=== PATIENT | male | born 1965 | race Caucasian/White ===

== ENCOUNTER 2017-09-18 07:17 | Observation (INO) | payer OTHER ==
[~2017-09-18] VITALS: Ht 182.9 cm; Wt 84.9 kg
[~2017-09-18 07:17] MED LIST: ADAL40KI PO; TADA5TAB11 PO
--- NOTE | 2017-09-18 07:55 | EMERGENCY ROOM VISIT NOTE ---
History Report prepared by Alberto: Ledy Barney Under the Supervision of: Dr. Rey Acevedo M.D. First contact with patient: 07:31 Chief Complaint: LEG PAIN,LEG INJURY Stated Complaint: SWOLLEN RT LEG FROM KNEE DOWN History of Present Illness The patient is a 51 year old male who presents to the Emergency Room with complaints of constant right leg pain and swelling beginning this morning. The patient states that his leg felt fine last night when he went to bed. He woke up this morning and noticed swelling to his right lower leg. He reports "throbbing" pain in the leg from the knee down into the foot. He rates his pain as a 5/10 in severity. Bending his leg and walking exacerbate his pain. The patient states that this has happened before in the past, but it has never been this severe. He has never been evaluated for these symptoms before. He denies any trauma or injury to the leg. He denies any twisting or increased physical activity. He has not been on his feet longer than usual recently. The patient denies any personal or family history of blood clots. He denies any recent prolonged travel, and any recent cough or cold symptoms. He does not take any blood thinners. He did not take any medications for pain [employer]. Source of History: patient Onset: this morning Position: leg (right) Symptom Intensity: 5/10 Quality: other (throbbing) Timing: constant Modifying Factors (Worsening): other (bending, walking) Associated Symptoms: No cough Note: Pt reports swelling to the right leg. Review of Systems See HPI for pertinent positives & negatives. A total of 10 systems reviewed and were otherwise negative. Past Medical & Surgical Medical Problems: (1) Dog bite of right arm (2) Need for post exposure prophylaxis for rabies (3) Ulcerative colitis Surgical Problems: (1) H/O colectomy (2) History of arthroplasty of right shoulder (3) History of carpal tunnel surgery of left wrist (4) History of colon surgery Family History Alzheimer's disease Cancer Hypertension Social History Smoking Status: Former Smoker Marital Status: Housing Status: lives with family Occupation Status: employed Current/Historical Medications Scheduled Adalimumab (Humira Pen), 1 DOSE PO [id number] Rivaroxaban (Xarelto), 0 PO DAILY Tadalafil (Cialis), 5 MG PO UD Allergies Coded Allergies: No Known Allergies (Unverified , 09/18/17) Physical Exam Vital Signs Date Time Temp Pulse Resp B/P (MAP) Pulse Ox O2 Delivery O2 Flow Rate FiO2 09/18/17 10:40 99 Room Air 09/18/17 09:41 78 124/74 99 09/18/17 07:22 36.7 88 20 119/66 96 Room Air Physical Exam GENERAL: Patient is in no acute distress. HEENT: No acute trauma, normocephalic atraumatic, mucous membranes moist, no nasal congestion, no scleral icterus. NECK: No stridor, no adenopathy, no meningismus, trachea is midline. LUNGS: Clear to auscultation bilaterally, no wheeze, no rhonchi, breath sounds equal. HEART: Without murmurs gallops or rubs, regular rate and rhythm. ABDOMEN: Soft, nontender, bowel sounds positive, no hernias, no peritonitis. EXTREMITIES: Right lower extremity is edematous from knee to foot, no erythema, no gross deformity, strong dorsalis pedis pulse present. Left leg has no edema. NEUROLOGIC: Oriented x 3, no acute motor or sensory deficits, no focal weakness. SKIN: No rash, no jaundice, no diaphoresis. Medical Decision & Procedures ER Provider Diagnostic Interpretation: Radiology results as stated below per my review and radiologist interpretation: ULTRASOUND R VENOUS DOPP LOWER EXT UNILAT CLINICAL HISTORY: Right leg pain and swelling COMPARISON STUDY: No previous studies for comparison. FINDINGS: No thrombus was visualized within the common femoral vein. There is thrombus present within the distal aspect of the superficial femoral vein, popliteal vein, and posterior tibial vein. IMPRESSION: Acute right lower extremity DVT with involvement of the distal superficial femoral vein, popliteal vein, and posterior tibial vein. Electronically signed by: Cory Chapman M.D. 09/18/2017 9:38 AM Dictated Date/Time: 09/18/2017 9:36 AM Laboratory Results 09/18/17 10:31 09/18/17 10:31 Test 09/18/17 10:31 Red Blood Count 4.54 M/uL (4.7-6.1) Mean Corpuscular Volume 93.4 fL (80-100) Mean Corpuscular Hemoglobin 32.4 pg (25-34) Mean Corpuscular Hemoglobin Concent 34.7 g/dl (32-36) RDW Standard Deviation 44.0 fL (36.4-46.3) RDW Coefficient of Variation 13.0 % (11.5-14.5) Mean Platelet Volume 9.9 fL (7.4-10.4) Prothrombin Time 10.6 SECONDS (9.0-12.0) Prothromb Time International Ratio 1.0 (0.9-1.1) Activated Partial Thromboplast Time 24.9 SECONDS (21.0-31.0) Partial Thromboplastin Ratio 1.0 Anion Gap 5.0 mmol/L (3-11) Est Creatinine Clear Calc Drug Dose 115.6 ml/min Estimated GFR () 118.1 Estimated GFR (Non- 101.9 BUN/Creatinine Ratio 13.0 (10-20) Calcium Level 8.6 mg/dl (8.5-10.1) Laboratory results reviewed by me. ED Course 0731: The patient was evaluated in room A3. A complete history and physical exam was performed. 0958: I reassessed the patient at this time. He is feeling better and resting comfortably. I discussed the results and treatment plan with the patient. I answered all pertaining questions that he had. He expressed understanding and verbalized agreement. 1006: I spoke with Cat Haider PA-C. We discussed the patient's case. The patient will be evaluated by the [facility] for further management. Medical Decision Differential diagnoses includes DVT, hematoma, muscle tear, venous insufficiency , cellulitis, compartment syndrome, neurovascular compromise. There is no leukocytosis or concerning anemia. No significant electrolyte abnormality or kidney failure. There is no coagulopathy. Ultrasound of the right lower extremity shows a fairly extensive distal right leg DVT. By exam, there was no evidence for neurovascular compromise, no evidence for cellulitis. The patient has a fairly extensive distal right leg DVT. Given the extensive nature, hospitalization was felt warranted. I did speak with the patient and disability case manager. The on-call hospitalist was consulted. A hypercoagulable workup was ordered and is pending. Medication Reconcilliation Current Medication List: was personally reviewed by me Blood Pressure Screening Patient's blood pressure: Normal blood pressure Consults Time Called: 1002 Consulting Physician: Cat Haider PA-C Returned Call: 1006 I spoke with Cat Haider PA-C. We discussed the patient's case. The patient will be evaluated by the [facility]ist Group for further management. Impression Primary Impression: Deep vein thrombosis Additional Impression: Right leg swelling Scribe Attestation The scribe's documentation has been prepared under my direction and personally reviewed by me in its entirety. I confirm that the note above accurately reflects all work, treatment, procedures, and medical decision making performed by me. Departure Information Dispostion Being Evaluated By Hospitalist Prescriptions Rivaroxaban (Xarelto) 10 Mg Tab 0 PO DAILY for 30 Days, #90 TAB 15 mg twice daily with food for 21 days, then 20 mg daily Prov: Frankie Duarte M.D. 09/18/17 Referrals Fabiana Khan M.D. (MEDICAL) (PCP) Patient Instructions My [facility] Problem Qualifiers
--- NOTE | 2017-09-18 09:39 | DIAGNOSTIC IMAGING REPORT ---
ULTRASOUND R VENOUS DOPP LOWER EXT UNILAT CLINICAL HISTORY: Right leg pain and swelling COMPARISON STUDY: No previous studies for comparison. FINDINGS: No thrombus was visualized within the common femoral vein. There is thrombus present within the distal aspect of the superficial femoral vein, popliteal vein, and posterior tibial vein. IMPRESSION: Acute right lower extremity DVT with involvement of the distal superficial femoral vein, popliteal vein, and posterior tibial vein. Electronically signed by: Cory Chapman M.D. 09/18/2017 9:38 AM Dictated Date/Time: 09/18/2017 9:36 AM
[2017-09-18 10:40] VITALS: O2SAT 99; Ht 182.9 cm; Wt 84.9 kg
[2017-09-18 10:50] LABS: HEMATOCRIT 42.4 % (42-52); HEMOGLOBIN 14.7 g/dL (14.0-18.0); MEAN CELL VOLUME 93.4 fL (80-100); MEAN CORPUSCULAR HEMOGLOBIN 32.4 pg (25-34); MEAN CORPUSCULAR HGB CONC 34.7 g/dl (32-36); MEAN PLATELET VOLUME 9.9 fL (7.4-10.4); PLATELET COUNT 189 K/uL (130-400); WHITE BLOOD COUNT 9.35 K/uL (4.8-10.8)
[2017-09-18 11:00] LABS: PTT PATIENT 24.9 SECONDS (21.0-31.0)
[2017-09-18] MEDS ORDERED: ONDANSETRON INJ 2 MG/ML 2 ML VIAL IV PRN (11:00)
[2017-09-18] MEDS ORDERED: ACETAMINOPHEN 325 MG TAB PO PRN (11:00)
[2017-09-18] MEDS ORDERED: POLYETHYLENE (MIRALAX) 17 GM PACK PO PRN (11:00)
[2017-09-18 11:14] LABS: CALCIUM 8.6 mg/dl (8.5-10.1); CREATININE 0.83 mg/dl (0.60-1.40); POTASSIUM 4.1 mmol/L (3.5-5.1)
[2017-09-18] MEDS ORDERED: IV FLUIDS COMPLETED PRN (11:30)
[2017-09-18 12:13] VITALS: O2SAT 99
[2017-09-18] MEDS ORDERED: HEPARIN 25000 UNIT/500 ML D5W ONE (12:24)
[2017-09-18] MEDS ORDERED: HEPARIN SOD 5000 UNIT/0.5 ML CARP ONE (12:25)
--- NOTE | 2017-09-18 12:31 | History and Physical ---
History & Physical Date & Time of Service: Sep 18, 2017 at 11:18 Chief Complaint: Swollen Rt Leg From Knee Down Primary Care Physician: Fabiana Khan M.D. (MEDICAL) History of Present Illness Source: patient, spouse, clinic records, hospital records Pt is 51 y/o M with PMH ulcerative colitis s/p total proctocolectomy with creation of ileoanal pouch on presented to ER with c/o R lower extremity pain and edema this morning. Reports feeling fine yesterday and woke up with R leg pain today. Pain with weight bearing and walking. Hx upper extremity venous thrombosis with PICC line after colon surgery in 2010. He finished 10 day course of Flagyl and Cipro for increased loose stools. Had negative c-diff and stool culture. Being treated by Dr Turpin for possible pouchitis. Pt reports hx intermittent red blood noted in stool and on small amount toilet paper since surgery in 2010. Reports occurs sometimes once a week. Denies any worsening. Denies epistaxis. Denies any known injury/trauma, recent immobilization, recent trips or surgeries. Denies known clotting disorder or FH clotting or bleeding disorders. Denies fever/chills, diaphoresis, N/V, ARANDA, dizziness, syncope, vision changes, neck pain, CP, SOB, orthopnea, palpitations, abdominal pain, paresthesias, weakness, rashes. Past Medical/Surgical History Medical Problems: (1) Dog bite of right arm Status: Resolved (2) Need for post exposure prophylaxis for rabies Status: Resolved (3) Ulcerative colitis Status: Chronic Surgical Problems: (1) H/O colectomy Status: Resolved (2) History of arthroplasty of right shoulder Status: Resolved (3) History of carpal tunnel surgery of left wrist Status: Resolved (4) History of colon surgery Permanent Comment: 2010 - Total Colostomy with proctectomy and ileostomy by Dr Sarabia [facility] Status: Resolved Family History Alzheimer's disease Cancer Hypertension Social History Smoking Status: Former Smoker (quit 1998, smoked 1ppd x 8 years) Smokeless Tobacco Use: Yes (4 cans snuff a week) Alcohol Use: 1 mixed drink daily ,5-6 days a week Drug Use: none Marital Status: Housing status: lives with family Occupational Status: employed Multi-Drug Resistant Organisms History of MDRO: No Allergies Coded Allergies: No Known Allergies (Unverified , 09/18/17) Home Medications Scheduled Adalimumab (Humira Pen), 1 DOSE PO [id number] Rivaroxaban (Xarelto), 0 PO DAILY Tadalafil (Cialis), 5 MG PO UD Review of Systems Constitutional: No fever, No chills, No sweats, No weight loss, No weakness, No fatigue Eyes: No eye pain, No redness, No diplopia ENT: No unusual epistaxis, No nasal symptoms, No sore throat Respiratory: No cough, No sputum, No wheezing, No shortness of breath, No dyspnea on exertion, No dyspnea at rest, No hemoptysis Cardiovascular: No chest pain, No orthopnea, No PND, No palpitations Musculoskeletal: + calf pain (see HPI) Genitourinary - Male: No hematuria, No dysuria, No urinary frequency, No urinary urgency Neurologic: No numbness/tingling, No vertigo Hematologic / Lymphatic: No night sweats Integumentary: No rash, No itch Physical Exam Vital Signs Date Time Temp Pulse Resp B/P (MAP) Pulse Ox O2 Delivery O2 Flow Rate FiO2 09/18/17 10:40 99 Room Air 09/18/17 09:41 78 124/74 99 09/18/17 07:22 36.7 88 20 119/66 96 Room Air General Appearance: WD/WN, no apparent distress Head: normocephalic, atraumatic Eyes: normal inspection, PERRL, EOMI ENT: hearing grossly normal, pharynx normal, + pertinent finding (mucous membranes moist) Neck: supple, trachea midline Respiratory/Chest: lungs clear, normal breath sounds, no respiratory distress, no accessory muscle use Cardiovascular: regular rate, rhythm, no murmur, normal peripheral pulses Abdomen/GI: normal bowel sounds, non tender, soft Extremities/Musculoskelatal: normal capillary refill, + pertinent finding ( Right lower leg and foot with edema and tenderness to palpation R calf. No erythema or significant warm, no open areas. left leg/foot normal appearance, non-tender. ROM intact with tenderness with flexion R knee. Distal pulses intact , sensation to light touch intact) Neurologic/Psych: alert, normal mood/affect, oriented x 3 Skin: normal color, warm/dry Diagnostics Laboratory Results Results Past 24 Hours Test 09/18/17 10:31 Range/Units White Blood Count 9.35 4.8-10.8 K/uL Red Blood Count 4.54 4.7-6.1 M/uL Hemoglobin 14.7 14.0-18.0 g/dL Hematocrit 42.4 42-52 % Mean Corpuscular Volume 93.4 80-100 fL Mean Corpuscular Hemoglobin 32.4 25-34 pg Mean Corpuscular Hemoglobin Concent 34.7 32-36 g/dl RDW Standard Deviation 44.0 36.4-46.3 fL RDW Coefficient of Variation 13.0 11.5-14.5 % Platelet Count 189 130-400 K/uL Mean Platelet Volume 9.9 7.4-10.4 fL Prothrombin Time 10.6 9.0-12.0 SECONDS Prothromb Time International Ratio 1.0 0.9-1.1 Activated Partial Thromboplast Time 24.9 21.0-31.0 SECONDS Partial Thromboplastin Ratio 1.0 Sodium Level 137 136-145 mmol/L Potassium Level 4.1 3.5-5.1 mmol/L Chloride Level 103 98-107 mmol/L Carbon Dioxide Level 29 21-32 mmol/L Anion Gap 5.0 3-11 mmol/L Blood Urea Nitrogen 11 7-18 mg/dl Creatinine 0.83 0.60-1.40 mg/dl Est Creatinine Clear Calc Drug Dose 115.6 ml/min Estimated GFR () 118.1 Estimated GFR (Non- 101.9 BUN/Creatinine Ratio 13.0 10-20 Random Glucose 80 70-99 mg/dl Calcium Level 8.6 8.5-10.1 mg/dl Diagnostic Radiology U/S extremity: IMPRESSION: Acute right lower extremity DVT with involvement of the distal superficial femoral vein, popliteal vein, and posterior tibial vein. Impression Assessment and Plan DVT RLE Pt with onset of R lower leg pain and edema, noticed today. No known trauma/ immobilization. Hx upper extremity dvt with picc line in past, no other DVT hx. No CP or SOB. Vitals stable and O2 sat 99% on RA. U/S Ext: IMPRESSION: Acute right lower extremity DVT with involvement of the distal superficial femoral vein, popliteal vein, and posterior tibial vein. -pending hypercoaguopathy labs -admit med/surg obs -start heparin -monitor labs -appreciate case management assistance in determining if novel anticoagulants covered by pt's insurance, as pt interested in that option over Coumadin HX ULCERATIVE COLITIS S/P TOTAL PROCTOCOLECTOMY Hx intermittent blood noted to toilet paper and stools. Hx chronic loose stools , had increased loose stools 3 weeks ago with negative c-diff and stool cultures. Treated with cipro and flagyl with return to normal amount loose stools daily. On Humira Q 2weeks. Last dose 09/16/17 DVT Prophylaxis -Pt with current acute DVT prior to admission - heparin IV with plan to transition to oral anticoagulant Disposition admit obs med/surg Full Code Follows with Dr Khan for routine care Pt was seen with Dr Duarte. See addendum Dr. Duarte: I have seen and examined the patient with FABIO Villarreal and agree with the assessment add plan as above and would like to comment that: Patient presents with right lower extremity swelling and found to have acute right lower extremity DVT with involvement of the distal superficial femoral vein, popliteal vein, and posterior tibial vein. Patient denies symptoms of chest pain or shortness of breath. Patient has history of ulcerative colitis and reports that he does have intermittent bleeding per rectum but denies recent blood per rectum. Patient was started on heparin drip. Patient was counseled that warfarin is a possible anticoagulation that may be appropriate given readily available reversal agents in case he has bleeding per rectum in the future. Patient declined warfarin as an option. Patient was discussed alternative of Xarelto or Eliquis. Patient agrees to Xarelto. Patient was instructed that Xarelto is to be taken with this direction: 15 mg twice daily with food for 21 days followed by 20 mg once daily with food. Patient will get Lovenox 85 mg subcutaneous anticoagulant before hospital discharge which will give him time to start Xarelto the day after hospital discharge. Patient has follow up appointment with Dr. Khan on 09/23/17 at 12:45 PM at [address] [place] [address]. Patient can reschedule primary car appointment by calling [phone]. Patient is advised to return to emergency room if bleeding while on Xarelto. Level of Care Med/Surg Advanced Directives Existing Living Will: No Existing Power of Director Of Casework: No Resuscitation Status FULL RESUSCITATION VTE Prophylaxis VTE Risk Assessment Done? Y/N: Yes Risk Level: High Given or contraindicated: Other Anticoagulation Additional Copies To Fabiana Khan M.D. (MEDICAL)
[2017-09-18 12:50] VITALS: BP 129/83; PULSE 84; TEMP 36.6; O2SAT 99
[2017-09-18] MEDS ORDERED: HEPARIN 25,000 UNIT/500ML D5W 500 ML IV PRN (13:00)
[2017-09-18] MEDS ORDERED: HEPARIN IV BOLUS 6,000 UNIT in SYRINGE 0 ML IV ONE (13:15)
[2017-09-18] MEDS ORDERED: XRL10 PO (13:47)
[2017-09-18] MEDS ORDERED: ENOXAPARIN 100 MG/1ML SYR SQ ONE (14:00)
--- NOTE | 2017-09-18 14:04 | Discharge Instructions ---
Discharge Instructions Date of Service Sep 18, 2017. Admission Reason for Admission: Deep Vein Thrombosis VTE Date & Time Date of VTE Diagnosis: Sep 18, 2017 Time of VTE Diagnosis: 09:36 Discharge Goals Goal(s): Improve function Activity Recommendations Activity Limitations: per Instructions/Follow-up section Shower/Bathe: no limitations . Instructions / Follow-Up Instructions / Follow-Up Patient presents with right lower extremity swelling and found to have acute right lower extremity DVT with involvement of the distal superficial femoral vein, popliteal vein, and posterior tibial vein. Patient denies symptoms of chest pain or shortness of breath. Patient has history of ulcerative colitis and reports that he does have intermittent bleeding per rectum but denies recent blood per rectum. Patient was started on heparin drip. Patient was counseled that warfarin is a possible anticoagulation that may be appropriate given readily available reversal agents in case he has bleeding per rectum in the future. Patient declined warfarin as an option. Patient was discussed alternative of Xarelto or Eliquis. Patient agrees to Xarelto. Patient was instructed that Xarelto is to be taken with this direction: 15 mg twice daily with food for 21 days followed by 20 mg once daily with food. Patient will get Lovenox 85 mg subcutaneous anticoagulant before hospital discharge which will give him time to start Xarelto the day after hospital discharge. Patient has follow up appointment with Dr. Khan on 09/23/17 at 12:45 PM at [address] [place] [id number]. Patient can reschedule primary car appointment by calling [phone]. Patient is advised to return to emergency room if bleeding while on Xarelto. Medication Instructions: Your condition is typically treated with an anticoagulant. Anticoagulants will thin your blood to help prevent new clots. * You should take her medication exactly as directed. * Never skip a dose. * Never take a double dose. If you miss a dose, take it as soon as you remember. Call your Primary Care doctor if you experience any of the following: * Swelling or Pain in your leg * Sudden, continuous pain deep in a muscle * Pain that worsens when you are active or when you stand still for a long time * Chest Pain * Sudden Shortness of Breath * Rapid or pounding heart beat * Fainting * Dizziness * Cough with blood or bloody sputum * Sweating more than normal * Bruises * Heavy or uncontrolled bleeding * Blood in your urine, stool or vomit * Black or tarry stools Caring for Your Self at Home: * Avoid sitting, standing or lying down for long periods without moving your legs and feet * When traveling by car, stop to get out and move around at least once every 3 hours * On long airplane, train or bus rides, get up and move around when possible * If you can't get up, wiggle your toes and tighten your calves to keep your blood moving Follow Up: It is important for you to keep your follow up appointments with your medical provider. Current Hospital Diet Patient's current hospital diet: Regular Diet Discharge Diet Recommended Diet: Regular Diet Pending Studies Studies pending at discharge: no Laboratory Results 09/18/17 10:31 09/18/17 10:31 Test 09/18/17 10:31 Red Blood Count 4.54 M/uL (4.7-6.1) Mean Corpuscular Volume 93.4 fL (80-100) Mean Corpuscular Hemoglobin 32.4 pg (25-34) Mean Corpuscular Hemoglobin Concent 34.7 g/dl (32-36) RDW Standard Deviation 44.0 fL (36.4-46.3) RDW Coefficient of Variation 13.0 % (11.5-14.5) Mean Platelet Volume 9.9 fL (7.4-10.4) Prothrombin Time 10.6 SECONDS (9.0-12.0) Prothromb Time International Ratio 1.0 (0.9-1.1) Activated Partial Thromboplast Time 24.9 SECONDS (21.0-31.0) Partial Thromboplastin Ratio 1.0 Anion Gap 5.0 mmol/L (3-11) Est Creatinine Clear Calc Drug Dose 115.6 ml/min Estimated GFR () 118.1 Estimated GFR (Non- 101.9 BUN/Creatinine Ratio 13.0 (10-20) Calcium Level 8.6 mg/dl (8.5-10.1) Medical Emergencies . Who to Call and When: Medical Emergencies: If at any time you feel your situation is an emergency, please call 911 immediately. . Non-Emergent Contact Non-Emergency issues call your: Primary Care Provider . . "Provider Documentation" section prepared by Frankie Duarte. . VTE Core Measure Inpt VTE Proph given/why not?: Enoxaparin (Lovenox)SQ, Unfractionated heparin SQ
--- NOTE | 2017-09-18 14:05 | Discharge Summary ---
Discharge Summary Date of Service Sep 18, 2017. Discharge Summary Admission Date: Sep 18, 2017 at 11:02 Discharge Date: Sep 18, 2017 Discharge Disposition: Home Principal Diagnosis: right lower extremity swelling and found to have acute right lower extremity DVT with involvement of the distal superficial femoral vein, popliteal vein, and posterior tibial vein Secondary Diagnoses/Problems: history of ulcerative colitis Medication Reconciliation New Medications: Rivaroxaban (Xarelto) 10 Mg Tab 0 PO DAILY for 30 Days, #90 TAB 15 mg twice daily with food for 21 days, then 20 mg daily Continued Medications: Adalimumab (Humira Pen) 40 Mg/0.8 Ml Kit 1 DOSE PO [id number] Tadalafil (Cialis) 5 Mg Tab 5 MG PO UD, TAB Admission Information HPI (per Admitting provider): Pt is 51 y/o M with PMH ulcerative colitis s/p total proctocolectomy with creation of ileoanal pouch on Humira presented to ER with c/o R lower extremity pain and edema this morning. Reports feeling fine yesterday and woke up with R leg pain today. Pain with weight bearing and walking. Hx upper extremity venous thrombosis with PICC line after colon surgery in 2010. He finished 10 day course of Flagyl and Cipro for increased loose stools. Had negative c-diff and stool culture. Being treated by Dr Turpin for possible pouchitis. Pt reports hx intermittent red blood noted in stool and on small amount toilet paper since surgery in 2010. Reports occurs sometimes once a week. Denies any worsening. Denies epistaxis. Denies any known injury/trauma, recent immobilization, recent trips or surgeries. Denies known clotting disorder or FH clotting or bleeding disorders. Denies fever/chills, diaphoresis, N/V, ARANDA, dizziness, syncope, vision changes, neck pain, CP, SOB, orthopnea, palpitations, abdominal pain, paresthesias, weakness, rashes. Physical Exam (per Admitting): General Appearance: WD/WN, no apparent distress Head: normocephalic, atraumatic Eyes: normal inspection, PERRL, EOMI ENT: hearing grossly normal, pharynx normal, + pertinent finding (mucous membranes moist) Neck: supple, trachea midline Respiratory/Chest: lungs clear, normal breath sounds, no respiratory distress, no accessory muscle use Cardiovascular: regular rate, rhythm, no murmur, normal peripheral pulses Abdomen/GI: normal bowel sounds, non tender, soft Extremities/Musculoskelatal: normal capillary refill, + pertinent finding ( Right lower leg and foot with edema and tenderness to palpation R calf. No erythema or significant warm, no open areas. left leg/foot normal appearance, non-tender. ROM intact with tenderness with flexion R knee. Distal pulses intact , sensation to light touch intact) Neurologic/Psych: alert, normal mood/affect, oriented x 3 Skin: normal color, warm/dry Hospital Course Patient presents with right lower extremity swelling and found to have acute right lower extremity DVT with involvement of the distal superficial femoral vein, popliteal vein, and posterior tibial vein. Patient denies symptoms of chest pain or shortness of breath. Patient has history of ulcerative colitis and reports that he does have intermittent bleeding per rectum but denies recent blood per rectum. Patient was started on heparin drip. Patient was counseled that warfarin is a possible anticoagulation that may be appropriate given readily available reversal agents in case he has bleeding per rectum in the future. Patient declined warfarin as an option. Patient was discussed alternative of Xarelto or Eliquis. Patient agrees to Xarelto. Patient was instructed that Xarelto is to be taken with this direction: 15 mg twice daily with food for 21 days followed by 20 mg once daily with food. Patient will get Lovenox 85 mg subcutaneous anticoagulant before hospital discharge which will give him time to start Xarelto the day after hospital discharge. Patient has follow up appointment with Dr. Khan on 09/23/17 at 12:45 PM at [address] [place] [id number]. Patient can reschedule primary car appointment by calling [phone]. Patient is advised to return to emergency room if bleeding while on Xarelto. Total time spent on discharge = 60 minutes This includes examination of the patient, discharge planning, medication reconciliation, and communication with other providers. Discharge Instructions Patient presents with right lower extremity swelling and found to have acute right lower extremity DVT with involvement of the distal superficial femoral vein, popliteal vein, and posterior tibial vein. Patient denies symptoms of chest pain or shortness of breath. Patient has history of ulcerative colitis and reports that he does have intermittent bleeding per rectum but denies recent blood per rectum. Patient was started on heparin drip. Patient was counseled that warfarin is a possible anticoagulation that may be appropriate given readily available reversal agents in case he has bleeding per rectum in the future. Patient declined warfarin as an option. Patient was discussed alternative of Xarelto or Eliquis. Patient agrees to Xarelto. Patient was instructed that Xarelto is to be taken with this direction: 15 mg twice daily with food for 21 days followed by 20 mg once daily with food. Patient will get Lovenox 85 mg subcutaneous anticoagulant before hospital discharge which will give him time to start Xarelto the day after hospital discharge. Patient has follow up appointment with Dr. Khan on 09/23/17 at 12:45 PM at [address] [place] [address]. Patient can reschedule primary car appointment by calling [phone]. Patient is advised to return to emergency room if bleeding while on Xarelto. Medication Instructions: Your condition is typically treated with an anticoagulant. Anticoagulants will thin your blood to help prevent new clots. You should take her medication exactly as directed. Never skip a dose. Never take a double dose. If you miss a dose, take it as soon as you remember. Call your Primary Care doctor if you experience any of the following: Swelling or Pain in your leg Sudden, continuous pain deep in a muscle Pain that worsens when you are active or when you stand still for a long time Chest Pain Sudden Shortness of Breath Rapid or pounding heart beat Fainting Dizziness Cough with blood or bloody sputum Sweating more than normal Bruises Heavy or uncontrolled bleeding Blood in your urine, stool or vomit Black or tarry stools Caring for Your Self at Home: Avoid sitting, standing or lying down for long periods without moving your legs and feet When traveling by car, stop to get out and move around at least once every 3 hours On long airplane, train or bus rides, get up and move around when possible If you can't get up, wiggle your toes and tighten your calves to keep your blood moving Follow Up: It is important for you to keep your follow up appointments with your medical provider.
[2017-09-18 16:19] VITALS: BP 129/83; PULSE 84; TEMP 36.6; O2SAT 99
== END 2017-09-18 16:37 | disposition home or self-care (01) ==
LOC: C.EDB 07:21 → C.MSN 11:02 → ENRESERV 11:20
PROVIDERS: ADMIT Hospitalist; ATTEND Hospitalist
DX: I82.4Z1 Acute embolism and thrombosis of unspecified deep veins of right distal lower extremity (principal); M79.604 Pain in right leg; Z90.49 Acquired absence of other specified parts of digestive tract; Z96.611 Presence of right artificial shoulder joint; Z82.49 Family history of ischemic heart disease and other diseases of the circulatory system; Z82.0 Family history of epilepsy and other diseases of the nervous system; Z87.891 Personal history of nicotine dependence

== ENCOUNTER 2019-05-02 09:16 | Inpatient (IN) ==
--- OUTSIDE RECORDS SUMMARY | 2019-05-02 09:19 | External Medical Summary | Continuity of Care Document ---
:1965 Author Name Tita Staton Address Unavailable Unavailable , Care Team Providers Name Role Phone Dania Fairchild PA-C Unavailable [email or web address] Thony Gutierres M.D. Unavailable [email or web address] Gabino GUTIERRES M.D. Unavailable Unavailable Unavailable Unavailable Unavailable Problems Clostridium difficile colitis (008.45) (A04.72) Ulcerative colitis (556.9) (K51.90) Benign Prostatic Hypertrophy (600.00) Allergies and Adverse Reactions No Known Drug Allergies (Allergy) Medications Viagra 50 MG Oral Tablet; TAKE 1 TABLET DAILY 1 HOUR B EFORE NEEDED Brionna Gutierres Start: 27-Jul-2011 Quantity: 6 Refills: 6 Diphenoxylate-Atropine 2.5-0.025 MG Oral Tablet; TAKE 2 TABLETS 4 TIMES DAILY NEEDED FOR DIARRHEA. ABAD Fairchild Start: 26-Oct-2011 Quantity: 240 Refills: 5 Procedures History of Neuroplasty Decompression Median Nerve At Carpal Status: Completed Tunnel History of Total Proctocolectomy Status: Completed History of Ileostomy Reversal Status: Co mpleted Immunizations Tdap On: 15-Mar-2013 Family History Unknown Family Member Family history of Prostate Cancer (V16.42) Status: Active Comments: Family History Social History - Smoking Status Former smoker Plan of Treatment Planned Observations Planned Goals not documented Results No Known Results Results not documented
[2019-05-02] MEDS ORDERED: FAMOTIDINE 20MG IV PUSH 20 MG/5 ML SYR IV STA (09:39)
[2019-05-02] MEDS ORDERED: SODIUM CHLORIDE 0.9% 250 ML IV PRN ×2 (09:40→15:49)
[2019-05-02] MEDS ORDERED: SODIUM CHLORIDE 0.9% 1000ML 1,000 ML IV SCH (09:45)
[2019-05-02 10:25] LABS: Hematocrit (blood only) 25.7 % (42-52); Hemoglobin 6.9 g/dL (14.0-18.0); Mean Corpuscular Hemoglobin 18.1 pg (25-34); Mean Corpuscular Hgb Conc 26.8 g/dL (32-36); Mean Corpuscular Volume 67.3 fL (80-100); Mean Platelet Volume 8.2 fL (7.4-10.4); Platelet Count 476 K/uL (130-400); RDW Coefficient of Variation 17.2 % (11.5-14.5); RDW Standard Deviation 42.2 fL (36.4-46.3); Red Blood Count 3.82 M/uL (4.7-6.1); White Blood Count 8.27 K/uL (4.8-10.8)
[2019-05-02 10:26] LABS: Partial Thromboplastin Ratio 0.8; Partial Thromboplastin Time 20.9 Seconds (21.0-31.0); Prothrombin Time 10.6 Seconds (9.0-12.0)
[2019-05-02 10:42] LABS: Alanine Aminotransferase 13 U/L (12-78); Aspartate Aminotransferase 7 U/L (15-37); BUN Creatinine Ratio 15.2 (10-20); Blood Urea Nitrogen 11 mg/dl (7-18); Calcium 8.5 mg/dl (8.5-10.1); Carbon Dioxide 25 mmol/L (21-32); Chloride 109 mmol/L (98-107); Creatinine Clr Calc Pharmacy 124.2 ml/min; Est GFR (African American) 124.2; Est GFR (Non-African American) 107.1; Glucose 93 mg/dl (70-99); Sodium 141 mmol/L (136-145)
[2019-05-02 10:46] LABS: Anisocytosis Present; Basophils # (auto) 0.03 K/uL (0-0.2); Basophils % (auto) 0.4 %; Eosinophils # (auto) 0.27 K/uL (0-0.5); Eosinophils % (auto) 3.3 %; Immature Granulocytes # (auto) 0.02 K/uL (0.00-0.02); Immature Granulocytes % (auto) 0.2 %; Lymphocytes # (auto) 1.57 K/uL (1.2-3.4); Microcytosis Present; Monocytes # (auto) 0.76 K/uL (0.11-0.59); Monocytes % (auto) 9.2 %; Neutrophils # (auto) 5.62 K/uL (1.4-6.5); Neutrophils % (auto) 67.9 %; Polychromasia 1+
[2019-05-02 10:47] LABS: Albumin Globulin Ratio 0.8 (0.9-2); Alkaline Phosphatase 66 U/L (45-117); Bilirubin,Total 0.3 mg/dl (0.2-1); Globulin 3.7 gm/dl (2.5-4.0); Total Protein 6.7 gm/dl (6.4-8.2); Troponin I < 0.015 ng/ml (0-0.045)
--- NOTE | 2019-05-02 13:03 | History & Physical Report ---
Date of Service May 02, 2019 Assessment & Plan (1) GI bleeding: (2) Symptomatic anemia: (3) Ulcerative colitis: Pt is 53 y/o M with PMH ulcerative colitis s/p total proctocolectomy with creation of ileoanal pouch, recurrent DVT on Xarelto presented for symptomatic anemia. Chronic intermittent red rectal bleeding with BMs and chronic intermittent melena, reports approx occurs every 3 days. Denies any increased bleeding or increased melena recently. Has been having exertional SOB, dizziness and lightheadedness for several months. H/O Hgb:13 in 08/2018, HGB: 7.2 in 02/2019, HGB: 6.8 on 05/01/2019. In ER afebrile, P: 101 initially down to 77, R: 20, BP: 120/76, 100% on RA. No leukocytosis, H/H: 6.9/25.7, microcytic, Plt: 476 Suspect chronic GI bleed leading to symptomatic anemia. -In ER 1L NSS total started, given pepcid 20mg IV -Transfuse PRBC -Monitor H&H and transfuse additional as appropriate -Hemoccult pending -Hold Humira (receives every 2 weeks, last dose 04/26/19) -Clear liquids for now -NPO midnight -Hold Xarelto -GI consult -CBC, BMP in am (4) Recurrent deep vein thrombosis (DVT) of right lower extremity: History RLE DVT in 08/2017 and 07/2018 and On Xarelto since Followed with hematology -Dr Grier who had recommended 1 year treatment with Xarelto and follow up after 1 year of treatment to consider if further anticoagulant needed -Doppler RLE to R/O DVT as reported increased right leg edema 2 days ago -Hold Xarelto with current anemia -May need to consult hematology for further recommendations (5) Tobacco use: Uses chewing tobacco -Denies nicotine patch -Tobacco cessation recommended DVT Prophylaxis -No chemical prophylaxis secondary to anemia Follows with Dr Muhammad for routine care Pt was seen and care coordinated with Dr Perry. See addendum History of Present Illness Chief Complaint: Abnormal labs Primary Care Provider: Rosie Muhammad, DO Pt is 53 y/o M with PMH ulcerative colitis s/p total proctocolectomy with creation of ileoanal pouch, recurrent DVT on Xarelto presented to ER with c/o abnormal labs. Was called and told to present to ER secondary to anemia on recent labs. Patient with history of ulcerative colitis and reports has had intermittent bright red bleeding with bowel movements and intermittent melena for years. States usually has bleeding approximately every 3 days. He denies any increased bleeding or increased melena recently. Reports chronic watery stools multiple times throughout the day and denies any increased. Denies any abdominal pain. Patient reports for several months he has been having exertional shortness of breath, dizziness and lightheadedness with exertion. Denies syncope. Patient reports couple days ago noticed increased right lower leg edema. Has been resting and elevating legs and reports decreased edema since. Denies any associated leg redness, leg pain. He reports he has been taking his Xarelto daily however did not have dose yet this morning. Reports approximately 10 pound weight loss over the past couple months. Denies night sweats. Denies fever/chills, diaphoresis, N/V, ARANDA, vision changes, neck pain, CP, orthopnea, palpitations, cough, sore throat, choking, otalgia, rhinorrhea, abdominal pain, paresthesias, weakness, extremity weakness, rashes, urinary symptoms. Denies NSAID use. Patient follows with Dr. Stanley. Colonoscopy 04/2018: With noted patent ileal pouch-anal anastomosis, intact staple line, examined portion of ileum was normal. Outpatient records reviewed showing hemoglobin of 13 in 08/2018, hemoglobin os 7.2 in 02/2019, hemoglobin 6.8 on 05/01/2019. Allergies Allergy/AdvReac Type Severity Reaction Status Date / Time No Known Allergies Allergy Unverified 09/18/17 07:54 Home Medications Home Medications Medication Instructions Recorded Confirmed Type adalimumab [Humira Pen] 40 mg SUBCUT UD 05/02/19 05/02/19 History rivaroxaban [Xarelto] 20 mg PO QAM 05/02/19 05/02/19 History Past Med/Surg History Medical History Recurrent deep vein thrombosis (DVT) of right lower extremity (Chronic) Tobacco use (Chronic) Ulcerative colitis (Chronic) Need for post exposure prophylaxis for rabies (Resolved) Dog bite of right arm (Resolved) Surgical History History of colectomy (Chronic) S/P total proctocolectomy with creation ileoanal pouch History of carpal tunnel surgery (Chronic) Family History Other Cancer Diabetes Prostate cancer Social History Preferred Language: Occitan Communication Ability: Effective Crossing Guard Required: No Beliefs That Will Affect Care: None Current Living Situation: Spouse Other Information That Helps Us Care for You: No Feels Safe at Home: Yes Safety Concerns: Feels Safe At This Time Smoking Status: Former smoker Tobacco Type: smokeless tobacco ; Do You Dip or Chew Tobacco: Yes (1 can per day) ; Smoking End Date: Quit smoking cigarettes in 1998 ; Hx Alcohol Use: Yes Alcohol type: hard liquor Alcohol Intake Frequency Comment: 3 shots a day Hx Substance Use: No Review of Systems Review of Systems: All systems reviewed & are unremarkable except as noted in HPI & below Physical Exam Physical Exam: General: no acute distress, WDWN Head: normocephalic, atraumatic Eyes: PERRL, EOM's intact, pale conjunctiva non-injected, anicteric ENT: normal inspection external ears, nose, mucous membranes moist Neck: supple, trachea midline Lungs: clear, no respiratory distress, no wheezing/rhonchi/rales CV: RRR, no murmur, Right leg with mild non-pitting edema, left leg with no pretibial edema Abd: normal BS, soft, non-tender Ext: no cyanosis, no calf tenderness; ROM intact, distal pulses intact Neuro: A&O x 3, no focal deficits noted, normal affect Skin: warm, dry, pale Results & Data Vital Signs (Past 12 Hours) Vital Signs Temp Pulse Pulse Resp BP BP Pulse Ox 05/02/19 12:30 36.8 C 80 17 124/73 100 05/02/19 11:53 77 17 127/73 100 05/02/19 11:45 78 13 100 05/02/19 11:43 36.8 C 80 18 124/72 98 05/02/19 11:42 77 15 124/72 100 05/02/19 11:30 75 13 05/02/19 11:15 87 17 05/02/19 11:00 75 14 05/02/19 10:45 80 15 05/02/19 10:30 75 14 05/02/19 10:15 77 16 05/02/19 10:08 79 19 120/65 05/02/19 10:06 82 20 05/02/19 09:19 36.5 C 101 H 20 120/76 100 Laboratory Results Short CBC 05/02/19 Range/Units 10:01 WBC 8.27 (4.8-10.8) K/uL Hgb 6.9 L* (14.0-18.0) g/dL Hct 25.7 L (42-52) % Plt Count 476 H (130-400) K/uL BMP 05/02/19 10:01 Sodium 141 Potassium 4.0 Chloride 109 H Carbon Dioxide 25 BUN 11 Creatinine 0.71 Glucose 93 Calcium 8.5 Cardiac Enzymes 05/02/19 Range/Units 10:01 Troponin I < 0.015 (0-0.045) ng/ml Liver Function 05/02/19 Range/Units 10:01 Total Bilirubin 0.3 (0.2-1) mg/dl AST 7 L (15-37) U/L ALT 13 (12-78) U/L Alkaline Phosphatase 66 (45-117) U/L Albumin 3.0 L (3.4-5.0) gm/dl Supervising Physician Co-Signing Physician Notes 53 y/o M with PMH ulcerative colitis s/p total proctocolectomy with creation of ileoanal pouch, recurrent right LE DVT on Xarelto who has been having intermittent bloody bowel movement for months. He has also been having exertional dyspnea and dizziness for about 2 months. Last bloody bowel movement was 4 days ago. He also noted right leg swelling for a few days. Denied any chest pain, palpitation, fatigue. On presentation, vital signs are stable. Physical exam is only remarkable for pale conjunctiva and trace right leg edema Review of labs show patient's Hb has been trending down over the past 8 months (13 in 08/2018, hemoglobin os 7.2 in 02/2019, hemoglobin 6.8 on 05/01/2019) Patient got 1 PRBC in ER. Will monitor Hb. Get orthostatic vitals Symptomatic anemia due to GI bleed -Will give a 2nd PRBC. Will appreciate GI eval for his GI bleed. Will keep on clears for now until GI evaluates. Will keep xarelto on hold for now Right LE Dopplers show chronic DVT, improved from prior. No acute DVT
--- NOTE | 2019-05-02 14:50 | Ultrasound Report ---
US venous doppler LE RT CLINICAL HISTORY: Increasing right leg edema. History of DVT. COMPARISON STUDY: August 2017 FINDINGS: Grayscale color flow and spectral waveform analysis was performed. The common femoral and s uperficial femoral veins appear patent. The popliteal vein is incompletely compressible but not expan ded. The findings are likely chronic and appear improved when compared to prior August 2017 study. Dilation the calf veins is somewhat limited without definitive thrombus. IMPRESSION: 1. Chronic DVT within the right popliteal vein, significantly improved compared to prior August 8 study 2. No acute right lower extremity DVT identified Electronically signed by: Cory Chapamn M.D. 05/02/2019 2:48 PM
[2019-05-02] MEDS ORDERED: ONDANSETRON INJ 2 MG/ML 2 ML VIAL IV PRN (15:28)
[2019-05-02] MEDS ORDERED: ACETAMINOPHEN 325 MG TAB PO PRN (15:28)
--- NOTE | 2019-05-02 16:38 | Emergency Department Note ---
Entered by Eryn Hare acting as a scribe for History of Present Illness General Chief complaint: Abnormal Labs/Diagnostic Testing Stated complaint: CALL FROM [email or web address] LAB WORK Source: patient History of Present Illness Provider complaint: Abnormal Labs Onset (ago): day(s) 1 Radiation: non-radiation Maximum Pain Intensity: 0 Relieved By: + none Exacerbated By: + movement Associated symptoms: + denies other symptoms (Loss of consciousness ) and + other (Bloody stools) The patient is a 53 year old male who presents to the Emergency Room with complaints of abnormal labs that were discovered at a separate doctors appointment yesterday and he was referred to the ED. patient notes that he has been getting chest pain shortness of breath with exertion for the past several months. He has admitted to dark tarry and bright red blood per rectum during the same time. Patient does admit to weakness and dizziness with movement. Currently has no chest pain or shortness of breath. No nausea vomiting or diarrhea. No dysuria urgency or frequency. Admits to previous colon resection secondary to ulcerative colitis. Denies any belly pain at this time. Home Medications Home Medications Medication Instructions Recorded Confirmed Type adalimumab [Humira Pen] 40 mg SUBCUT UD 05/02/19 05/02/19 History rivaroxaban [Xarelto] 20 mg PO QAM 05/02/19 05/02/19 History Allergies Allergy/AdvReac Type Severity Reaction Status Date / Time No Known Allergies Allergy Unverified 09/18/17 07:54 Past Med/Surg History Medical History Recurrent deep vein thrombosis (DVT) of right lower extremity (Chronic) Tobacco use (Chronic) Ulcerative colitis (Chronic) Need for post exposure prophylaxis for rabies (Resolved) Dog bite of right arm (Resolved) Surgical History History of colectomy (Chronic) S/P total proctocolectomy with creation ileoanal pouch History of carpal tunnel surgery (Chronic) Family History Other Cancer Diabetes Prostate cancer Social History Preferred Language: Montserratian Communication Ability: Effective Night Manager Required: No Beliefs That Will Affect Care: None Current Living Situation: Spouse Other Information That Helps Us Care for You: No Feels Safe at Home: Yes Safety Concerns: Feels Safe At This Time Smoking Status: Former smoker Tobacco Type: smokeless tobacco ; Do You Dip or Chew Tobacco: Yes (1 can per day) ; Smoking End Date: Quit smoking cigarettes in 1998 ; Hx Alcohol Use: Yes Alcohol type: hard liquor Alcohol Intake Frequency Comment: 3 shots a day Hx Substance Use: No Review of Systems See HPI for pertinent positives & negatives. and A total of 10 systems reviewed and were otherwise negative Physical Exam Vital Signs Vital Signs - 24 hr 05/02/19 09:19 05/02/19 10:06 05/02/19 10:08 Temperature 36.5 C Temperature Source Oral Sepsis Recent Fever Within 48 Hours No Sepsis New/Unexplained Change in Mental Status No Sepsis Action Taken by Nursing No Action Required Pulse Rate 101 H 82 79 Pulse Rate [Apical] Pulse Rate from SpO2 Sensor Pulse Rhythm Pulse Rhythm [Apical] Pulse Strength Respiratory Rate 20 20 19 Respiratory Effort / Characteristics Non-Labored Respiratory Depth Normal Respiratory Pattern Blood Pressure 120/76 120/65 Blood Pressure [Right Arm] Blood Pressure Mean 90 83 Blood Pressure Mean [Right Arm] Blood Pressure Position Sitting Pulse Oximetry 100 Oxygen Delivery Method Room Air 05/02/19 10:10 05/02/19 10:15 05/02/19 10:30 Temperature Temperature Source Oral Sepsis Recent Fever Within 48 Hours Sepsis New/Unexplained Change in Mental Status Sepsis Action Taken by Nursing Pulse Rate 77 75 Pulse Rate [Apical] Pulse Rate from SpO2 Sensor Pulse Rhythm Pulse Rhythm [Apical] Pulse Strength Respiratory Rate 16 14 Respiratory Effort / Characteristics Respiratory Depth Respiratory Pattern Blood Pressure Blood Pressure [Right Arm] Blood Pressure Mean Blood Pressure Mean [Right Arm] Blood Pressure Position Pulse Oximetry Oxygen Delivery Method Room Air 05/02/19 10:45 05/02/19 11:00 05/02/19 11:15 Temperature Temperature Source Sepsis Recent Fever Within 48 Hours Sepsis New/Unexplained Change in Mental Status Sepsis Action Taken by Nursing Pulse Rate 80 75 87 Pulse Rate [Apical] Pulse Rate from SpO2 Sensor Pulse Rhythm Pulse Rhythm [Apical] Pulse Strength Respiratory Rate 15 14 17 Respiratory Effort / Characteristics Respiratory Depth Respiratory Pattern Blood Pressure Blood Pressure [Right Arm] Blood Pressure Mean Blood Pressure Mean [Right Arm] Blood Pressure Position Pulse Oximetry Oxygen Delivery Method 05/02/19 11:30 05/02/19 11:42 05/02/19 11:43 Temperature 36.8 C Temperature Source Oral Sepsis Recent Fever Within 48 Hours Sepsis New/Unexplained Change in Mental Status Sepsis Action Taken by Nursing Pulse Rate 75 77 80 Pulse Rate [Apical] Pulse Rate from SpO2 Sensor 77 Pulse Rhythm Regular Pulse Rhythm [Apical] Pulse Strength Normal Respiratory Rate 13 15 18 Respiratory Effort / Characteristics Respiratory Depth Respiratory Pattern Blood Pressure 124/72 124/72 Blood Pressure [Right Arm] Blood Pressure Mean 89 89 Blood Pressure Mean [Right Arm] Blood Pressure Position Pulse Oximetry 100 98 Oxygen Delivery Method 05/02/19 11:45 05/02/19 11:47 05/02/19 11:53 Temperature Temperature Source Sepsis Recent Fever Within 48 Hours Sepsis New/Unexplained Change in Mental Status Sepsis Action Taken by Nursing Pulse Rate 78 77 Pulse Rate [Apical] Pulse Rate from SpO2 Sensor 78 77 Pulse Rhythm Pulse Rhythm [Apical] Pulse Strength Respiratory Rate 13 17 Respiratory Effort / Characteristics Non-Labored Spontaneous Respiratory Depth Normal Respiratory Pattern Regular Blood Pressure 127/73 Blood Pressure [Right Arm] Blood Pressure Mean 91 Blood Pressure Mean [Right Arm] Blood Pressure Position Pulse Oximetry 100 100 Oxygen Delivery Method Room Air 05/02/19 11:54 05/02/19 12:00 05/02/19 12:15 Temperature Temperature Source Sepsis Recent Fever Within 48 Hours Sepsis New/Unexplained Change in Mental Status Sepsis Action Taken by Nursing Pulse Rate 76 77 82 Pulse Rate [Apical] Pulse Rate from SpO2 Sensor 77 77 81 Pulse Rhythm Pulse Rhythm [Apical] Pulse Strength Respiratory Rate 13 19 17 Respiratory Effort / Characteristics Respiratory Depth Respiratory Pattern Blood Pressure 126/77 127/74 Blood Pressure [Right Arm] Blood Pressure Mean 93 91 Blood Pressure Mean [Right Arm] Blood Pressure Position Pulse Oximetry 100 100 100 Oxygen Delivery Method 05/02/19 12:30 05/02/19 12:45 05/02/19 13:00 Temperature 36.8 C Temperature Source Oral Sepsis Recent Fever Within 48 Hours Sepsis New/Unexplained Change in Mental Status Sepsis Action Taken by Nursing Pulse Rate 78 80 78 Pulse Rate [Apical] 80 Pulse Rate from SpO2 Sensor 78 80 79 Pulse Rhythm Pulse Rhythm [Apical] Regular Pulse Strength Respiratory Rate 14 19 13 Respiratory Effort / Characteristics Non-Labored Spontaneous Respiratory Depth Normal Respiratory Pattern Regular Blood Pressure 124/73 125/68 125/71 Blood Pressure [Right Arm] 124/73 Blood Pressure Mean 90 87 89 Blood Pressure Mean [Right Arm] 90 Blood Pressure Position Pulse Oximetry 100 100 100 Oxygen Delivery Method Room Air GENERAL: Sitting up in bed chronically ill-appearing talking in full sentences wearing hospital gown EYE EXAM: normal conjunctiva OROPHARYNX: no exudate, no erythema, lips, buccal mucosa, and tongue normal and mucous membranes are moist NECK: supple, no nuchal rigidity, no adenopathy, non-tender LUNGS: Clear to auscultation. Normal chest wall mechanics HEART: no murmurs, S1 normal and S2 normal ABDOMEN: abdomen soft, non-tender, normo-active bowel sounds, no masses, no rebound or guarding. BACK: Back is symmetrical on inspection and there is no deformity, no midline tenderness, no CVA tenderness. SKIN: no rashes and no bruising UPPER EXTREMITIES: upper extremities are grossly normal. LOWER EXTREMITIES: No pitting edema. NEURO EXAM: Normal sensorium, cranial nerves II-XII grossly intact, normal speech, no gross weakness of arms, no gross weakness of legs. Course ED COURSE: Vital signs were reviewed and showed hypertensive The patients medical record was reviewed hypertension The above diagnostic studies were performed and reviewed. ED treatments and interventions as stated above. The patient was evaluated in room B3. A complete history and physical examination was performed. 1134: Upon reevaluation, the patient is feeling much better. I discussed my findings with the patient and he understands and agrees with the treatment plan. Based on the patients age, coexisting illnesses, exam and lab findings the decision to treat as an inpatient was made. The patient remained stable while under my care. The patient will be evaluated for further management. 1137: I spoke with Suzanna Haider about the patient Administered Medications Sodium Chloride (Nss 1000ml) 1,000 mls @ 100 mls/hr IV .Q10H RUIZ Stop: 05/02/19 19:44 Last Infusion: 05/02/19 15:55 Dose: 0 mls/hr Documented by: [id number] Admin: 05/02/19 10:15 Dose: 100 mls/hr Documented by: [id number] Discontinued Medications Famotidine (Pepcid 20mg Iv Push) 20 mg in 5 mls @ 2.5 mls/min IV NOW STA Stop: 05/02/19 09:40 Last Admin: 05/02/19 10:15 Dose: 2.5 mls/min Documented by: [id number] Medical Decision Making Differential Diagnosis Differential diagnosis includes etiologies such as diverticulitis, diverticulosis, AVM, coagulopathy, colitis, inflammatory bowel disease, malignancy, Magdalena-Schultz tear, esophagitis, peptic ulcer disease, variceal bleed, gastritis, epistaxis, fissure, hemorrhoids, as well as others were entertained. Medical Records Attestation: I reviewed the patient's medical records. Home Medications Current Medication List: was personally reviewed by me Laboratory Data Attestation: I reviewed the patient's lab results. Result diagrams: 05/02/19 10:05/02/19 10: Lab Results 05/02/19 05/02/19 05/02/19 Range/Units 10: 10: 10: WBC 8.27 (4.8-10.8) K/uL RBC 3.82 L (4.7-6.1) M/uL Hgb 6.9 L* (14.0-18.0) g/dL Hct 25.7 L (42-52) % MCV 67.3 L (80-100) fL MCH 18.1 L (25-34) pg MCHC 26.8 L (32-36) g/dL RDW Std Deviation 42.2 (36.4-46.3) fL RDW Coeff of Sloane 17.2 H (11.5-14.5) % Plt Count 476 H (130-400) K/uL MPV 8.2 (7.4-10.4) fL Immature Gran % (Auto) 0.2 % Neut % (Auto) 67.9 % Lymph % (Auto) 19.0 % Pepin % (Auto) 9.2 % Eos % (Auto) 3.3 % Baso % (Auto) 0.4 % Immature Gran # (Auto) 0.02 (0.00-0.02) K/uL Neut # (Auto) 5.62 (1.4-6.5) K/uL Lymph # (Auto) 1.57 (1.2-3.4) K/uL Pepin # (Auto) 0.76 H (0.11-0.59) K/uL Eos # (Auto) 0.27 (0-0.5) K/uL Baso # (Auto) 0.03 (0-0.2) K/uL Polychromasia 1+ Anisocytosis Present Microcytosis Present PT 10.6 (9.0-12.0) Seconds INR 1.0 (0.9-1.1) APTT 20.9 L (21.0-31.0) Seconds PTT Ratio 0.8 Sodium 141 (136-145) mmol/L Potassium 4.0 (3.5-5.1) mmol/L Chloride 109 H (98-107) mmol/L Carbon Dioxide 25 (21-32) mmol/L Anion Gap 6.0 (3-11) BUN 11 (7-18) mg/dl Creatinine 0.71 (0.6-1.4) mg/dl Est Cr Clr Drug Dosing 124.2 ml/min Est GFR ( Amer) 124.2 Est GFR (Non-Af Amer) 107.1 BUN/Creatinine Ratio 15.2 (10-20) Glucose 93 (70-99) mg/dl Calcium 8.5 (8.5-10.1) mg/dl Total Bilirubin 0.3 (0.2-1) mg/dl AST 7 L (15-37) U/L ALT 13 (12-78) U/L Alkaline Phosphatase 66 (45-117) U/L Troponin I < 0.015 (0-0.045) ng/ml Total Protein 6.7 (6.4-8.2) gm/dl Albumin 3.0 L (3.4-5.0) gm/dl Globulin 3.7 (2.5-4.0) gm/dl Albumin/Globulin Ratio 0.8 L (0.9-2) Blood Type Blood Type Recheck Antibody Screen Crossmatch 05/02/19 05/02/19 Range/Units 10:01 10:47 WBC (4.8-10.8) K/uL RBC (4.7-6.1) M/uL Hgb (14.0-18.0) g/dL Hct (42-52) % MCV (80-100) fL MCH (25-34) pg MCHC (32-36) g/dL RDW Std Deviation (36.4-46.3) fL RDW Coeff of Sloane (11.5-14.5) % Plt Count (130-400) K/uL MPV (7.4-10.4) fL Immature Gran % (Auto) % Neut % (Auto) % Lymph % (Auto) % Pepin % (Auto) % Eos % (Auto) % Baso % (Auto) % Immature Gran # (Auto) (0.00-0.02) K/uL Neut # (Auto) (1.4-6.5) K/uL Lymph # (Auto) (1.2-3.4) K/uL Pepin # (Auto) (0.11-0.59) K/uL Eos # (Auto) (0-0.5) K/uL Baso # (Auto) (0-0.2) K/uL Polychromasia Anisocytosis Microcytosis PT (9.0-12.0) Seconds INR (0.9-1.1) APTT (21.0-31.0) Seconds PTT Ratio Sodium (136-145) mmol/L Potassium (3.5-5.1) mmol/L Chloride (98-107) mmol/L Carbon Dioxide (21-32) mmol/L Anion Gap (3-11) BUN (7-18) mg/dl Creatinine (0.6-1.4) mg/dl Est Cr Clr Drug Dosing ml/min Est GFR ( Amer) Est GFR (Non-Af Amer) BUN/Creatinine Ratio (10-20) Glucose (70-99) mg/dl Calcium (8.5-10.1) mg/dl Total Bilirubin (0.2-1) mg/dl AST (15-37) U/L ALT (12-78) U/L Alkaline Phosphatase (45-117) U/L Troponin I (0-0.045) ng/ml Total Protein (6.4-8.2) gm/dl Albumin (3.4-5.0) gm/dl Globulin (2.5-4.0) gm/dl Albumin/Globulin Ratio (0.9-2) Blood Type A Positive Blood Type Recheck A Positive Antibody Screen NEGATIVE Crossmatch See Detail ECG Data Attestation: I personally reviewed and interpreted this ECG as follows: Indication: other (Abnormal labs ) Rate (beats per minute): 81 Rhythm: sinus rhythm Findings: + other (Normal axis ); no PVC Blood Pressure Blood Pressure Findings: Normal blood pressure Blood Pressure Disposition: further management by hospitalist MARY Robert Patient is a 53-year-old male who presents the ER status post colon resection with a history of ulcerative colitis that presents the ER for hemoglobin found an outpatient in the [facility]. Upon review of his chart previous hemoglobin is 14. He is taking a 10 a inhibitor for previous blood clot over a year ago. He missed his dose this morning. He admits to dark tarry stools and bright red blood per rectum which has been present for the past 2 months. He also admits to feeling weak and tired and dizzy. IV was established blood work was obtained and labs show a hemoglobin of 6.9. No significant leukocytosis. INR was unremarkable. BMP along with LFTs bilirubin and troponin was unremarkable. Patient was typed and crossed and given 2 units of PRBCs while in the ER. I obt ained verbal and written consent at bedside. Patient was monitored closely during this transfusion. His Xarelto was not reversed as he missed today's dose. Discussed with the hospitalist and patient was admitted for symptom medic anemia associated with GI bleed secondary to ulcerative colitis. Impression & Plan Acute GI bleeding, Symptomatic anemia Critical Care Time Critical Care Time: Yes Total Critical Care Time: 35 I have personally spent 35 minutes of critical care time in the direct management of this patient. This includes bedside care, interpretation of diagnostic studies, and testing, discussion with consultants, patient, and family members, and other required patient management activities. This 35 minutes is in excess of all separately billable procedures. Discharge Plan Visit Data *Final* Discharge Date/Time: 05/02/19 14:08 Chief Complaint: Abnormal Labs/Diagnostic Testing Stated Complaint: CALL FROM [facility] RE LAB WORK ED Provider: Prasad Keller Discharge Problem: Acute GI bleeding, Symptomatic anemia Patient Disposition: Admitted As Inpatient Discharge Instructions Interventions: ED Discharge Assessment Last Done: 05/02/19 14:08 The scribe's documentation has been prepared under my direction and personally reviewed by me in its entirety. I confirm that the note above accurately reflects all work, treatment, procedures, and medical decision making performed by me.
[2019-05-02 20:38] LABS: Hematocrit (blood only) 30.1 % (42-52); Hemoglobin 8.7 g/dL (14.0-18.0)
[2019-05-03 07:21] LABS: Hematocrit (blood only) 28.6 % (42-52); Hemoglobin 8.4 g/dL (14.0-18.0); Mean Corpuscular Hemoglobin 20.6 pg (25-34); Mean Corpuscular Hgb Conc 29.4 g/dL (32-36); Mean Corpuscular Volume 70.3 fL (80-100); Mean Platelet Volume 8.3 fL (7.4-10.4); Platelet Count 364 K/uL (130-400); RDW Coefficient of Variation 19.4 % (11.5-14.5); RDW Standard Deviation 49.7 fL (36.4-46.3); Red Blood Count 4.07 M/uL (4.7-6.1); White Blood Count 8.59 K/uL (4.8-10.8)
--- NOTE | 2019-05-03 07:51 | Hospitalist Progress Note ---
Date of Service May 03, 2019 Assessment & Plan (1) Symptomatic anemia: Due to chronic GI blood loss Patient reports he has been having intermittent bleed for years No longer having any obvious GI bleed. Hemoccult negative Microcytic hypochromic anemia from chronic blood loss and likely iron deficiency Iron studies added on to labs today. Will benefit from iron supplementation on discharge Will also benefit from regular monitoring of Hb outpatient. Will appreciate GI recommendations (2) GI bleeding: As above (3) Recurrent deep vein thrombosis (DVT) of right lower extremity: History RLE DVT in 08/2017 and 07/2018 and On Xarelto since Followed with hematology -Dr Grier who had recommended 1 year treatment with Xarelto and follow up after 1 year of treatment to consider if further anticoagulant needed Doppler showed chronic Right LE DVT, improved from before Per patient, he has been having intermittent GI bleed since after surgeries. Discussed the risk and benefit of the anticoagulation. Also his ulcerative colitis is also a risk for VTE. He understands and will resume xarelto for his DVT. I discussed with him that he will need regular monitoring of his Hb when discharged. (4) Ulcerative colitis: s/p total proctocolectomy with creation of ileoanal pouch He is on Humira (receives every 2 weeks, last dose 04/26/19) Will follow up with his Locomotive Electrician for continued management on discharge Subjective Patient reports dizziness and exertional dyspnea has resolved. Denied any palpitation, chest pain. Reported he had bowel movement which was greenish. No melena/BRBPR Review of Systems Review of Systems: All systems reviewed and unremarkable except for mentioned above. Physical Exam Physical Exam: General: Well nourished, well hydrated , average body habitus, no acute distress and not ill appearing Eyes: PERRL, mild pallor, anicteric sclerae, EOM intact bilaterally ENMT: External ear and nose normal, oropharynx normal Neck: Normal visual inspection, no tracheal deviation, no swelling noted Respiratory: Normal respiratory effort, no respiratory distress, lungs clear to auscultation, no crackles and no wheezes Cardiovascular: Pulse is RRR. Heart Sounds: normal S1 and normal S2; no murmurs. Vessels: normal peripheral pulses Gastrointestinal (Abdomen): Abdomen is not distended, soft, non-tender to palpation, no guarding, no palpable hepatosplenomegaly, normal bowel sounds Musculoskeletal: No cyanosis or clubbing, +trace right leg edema Neurologic: Alert and oriented x 3, No focal weakness, sensation grossly intact Results & Data Vital Signs (Past 12 Hours) Vital Signs Temp Pulse Pulse Resp BP Pulse Ox 05/03/19 07:43 36.8 C 81 16 116/74 100 05/03/19 03:59 36.6 C 80 18 113/71 99 05/03/19 00:00 80 05/02/19 22:07 36.8 C 89 18 121/72 98 Laboratory Results Laboratory Results - last 24 hr 05/02/19 05/02/19 05/02/19 10:01 10:01 10:01 WBC 8.27 RBC 3.82 L Hgb 6.9 L* Hct 25.7 L MCV 67.3 L MCH 18.1 L MCHC 26.8 L RDW Std Deviation 42.2 RDW Coeff of Sloane 17.2 H Plt Count 476 H MPV 8.2 Immature Gran % (Auto) 0.2 Neut % (Auto) 67.9 Lymph % (Auto) 19.0 Victoria % (Auto) 9.2 Eos % (Auto) 3.3 Baso % (Auto) 0.4 Immature Gran # (Auto) 0.02 Neut # (Auto) 5.62 Lymph # (Auto) 1.57 Victoria # (Auto) 0.76 H Eos # (Auto) 0.27 Baso # (Auto) 0.03 Polychromasia 1+ Anisocytosis Present Microcytosis Present PT 10.6 INR 1.0 APTT 20.9 L PTT Ratio 0.8 Sodium 141 Potassium 4.0 Chloride 109 H Carbon Dioxide 25 Anion Gap 6.0 BUN 11 Creatinine 0.71 Est Cr Clr Drug Dosing 124.2 Est GFR ( Amer) 124.2 Est GFR (Non-Af Amer) 107.1 BUN/Creatinine Ratio 15.2 Glucose 93 Calcium 8.5 Total Bilirubin 0.3 AST 7 L ALT 13 Alkaline Phosphatase 66 Troponin I < 0.015 Total Protein 6.7 Albumin 3.0 L Globulin 3.7 Albumin/Globulin Ratio 0.8 L Stool Occult Bld Scrn Blood Type Blood Type Recheck Antibody Screen Crossmatch 05/02/19 05/02/19 05/02/19 10:01 10:47 20:15 WBC RBC Hgb 8.7 L Hct 30.1 L MCV MCH MCHC RDW Std Deviation RDW Coeff of Sloane Plt Count MPV Immature Gran % (Auto) Neut % (Auto) Lymph % (Auto) Victoria % (Auto) Eos % (Auto) Baso % (Auto) Immature Gran # (Auto) Neut # (Auto) Lymph # (Auto) Victoria # (Auto) Eos # (Auto) Baso # (Auto) Polychromasia Anisocytosis Microcytosis PT INR APTT PTT Ratio Sodium Potassium Chloride Carbon Dioxide Anion Gap BUN Creatinine Est Cr Clr Drug Dosing Est GFR ( Amer) Est GFR (Non-Af Amer) BUN/Creatinine Ratio Glucose Calcium Total Bilirubin AST ALT Alkaline Phosphatase Troponin I Total Protein Albumin Globulin Albumin/Globulin Ratio Stool Occult Bld Scrn Blood Type A Positive Blood Type Recheck A Positive Antibody Screen NEGATIVE Crossmatch See Detail 05/02/19 05/03/19 05/03/19 Unknown 07:07 07:07 WBC 8.59 RBC 4.07 L Hgb 8.4 L Hct 28.6 L MCV 70.3 L MCH 20.6 L MCHC 29.4 L RDW Std Deviation 49.7 H RDW Coeff of Sloane 19.4 H Plt Count 364 MPV 8.3 Immature Gran % (Auto) Neut % (Auto) Lymph % (Auto) Victoria % (Auto) Eos % (Auto) Baso % (Auto) Immature Gran # (Auto) Neut # (Auto) Lymph # (Auto) Victoria # (Auto) Eos # (Auto) Baso # (Auto) Polychromasia Anisocytosis Microcytosis PT INR APTT PTT Ratio Sodium Pending Potassium Pending Chloride Pending Carbon Dioxide Pending Anion Gap Pending BUN Pending Creatinine Pending Est Cr Clr Drug Dosing Pending Est GFR ( Amer) Pending Est GFR (Non-Af Amer) Pending BUN/Creatinine Ratio Pending Glucose Pending Calcium Pending Total Bilirubin AST ALT Alkaline Phosphatase Troponin I Total Protein Albumin Globulin Albumin/Globulin Ratio Stool Occult Bld Scrn Negative Blood Type Blood Type Recheck Antibody Screen Crossmatch
[2019-05-03 07:59] LABS: BUN Creatinine Ratio 13.1 (10-20); Calcium 8.2 mg/dl (8.5-10.1); Creatinine Clr Calc Pharmacy 130.1 ml/min; Est GFR (African American) 126.4; Potassium 4.3 mmol/L (3.5-5.1)
[2019-05-03 08:39] LABS: Ferritin 6.8 ng/ml (8-388)
[2019-05-03] MEDS ORDERED: IRON SUCROSE 300 MG in SODIUM CHLORIDE 0.9% 250 ML IV ONE (13:00)
--- NOTE | 2019-05-03 13:06 | Gastrointestinal Consultation ---
Date of Consultation May 03, 2019 History of Present Illness Attending Physician: Kavita Perry MD 53 yo M with h/o UC s/p J pouch with chornic pouch-itis maintained on Humira and PRN Flagyl; he also has a h/o DVT's is maintaine don Xarelto. He reports a long h/o intermittent rectal bleeding, with slowly declining hgb over the past year - his prior baseline was 15, then 13 in 08/2018 and approx 8 in February 2019. He was seen by PCP on Saturday c/o weakness, fatigue, exertional CP and dyspnea, and increased RLE swelling. He was found to have an hgb of 6.8 with MCV 70 and ferritin of 7. His BP was normal with mild tachy on admission, and denies no recent change in his chronic GI bleeding, and no recent increase in his stool frequency, which he reports is generally 8 x day. He received 2 U PRBC and feels much improved. PE: comfortable, NAD HEENT: mucosal pallor CV: RRR Resp: CTA Abd: soft ND Extrem: tr edema, right leg mildly larger than left Labs reviewed - BUN WNL, uls showed chronic DVT A/P: Pouchitis, chronic rectal bleeding on xarelto for DVT - His symptoms are chronic, rather than acute; he can be discharged with outpt f/u. OK to resume Humira, Xarelto. Please consider IV iron prior to d/c. Please discharge on folic acid. Will arrange for outpt GI f/u with Dr. Turpin. A/P: Allergies Allergy/AdvReac Type Severity Reaction Status Date / Time No Known Allergies Allergy Unverified 09/18/17 07:54 Home Medications Home Medications Medication Instructions Recorded Confirmed Type adalimumab [Humira Pen] 40 mg SUBCUT UD 05/02/19 05/02/19 History rivaroxaban [Xarelto] 20 mg PO QAM 05/02/19 05/02/19 History Patient History Medical History Recurrent deep vein thrombosis (DVT) of right lower extremity (Chronic) Tobacco use (Chronic) Ulcerative colitis (Chronic) Need for post exposure prophylaxis for rabies (Resolved) Dog bite of right arm (Resolved) Surgical History History of colectomy (Chronic) S/P total proctocolectomy with creation ileoanal pouch History of carpal tunnel surgery (Chronic) Family History Other Cancer Diabetes Prostate cancer Social History Preferred Language: Maltese Communication Ability: Effective Territory Manager General Sales Required: No Beliefs That Will Affect Care: None Current Living Situation: Spouse Other Information That Helps Us Care for You: No Feels Safe at Home: Yes Safety Concerns: Feels Safe At This Time Smoking Status: Former smoker Tobacco Type: smokeless tobacco ; Do You Dip or Chew Tobacco: Yes (1 can per day) ; Smoking End Date: Quit smoking cigarettes in 1998 ; Hx Alcohol Use: Yes Alcohol type: hard liquor Alcohol Intake Frequency Comment: 3 shots a day Hx Substance Use: No Results & Data Vital Signs (Past 12 Hours) Vital Signs Temp Pulse Pulse Resp BP Pulse Ox 05/03/19 12:57 86 116/75 05/03/19 11:30 37.0 C 79 16 121/67 98 05/03/19 09:00 91 H 05/03/19 07:43 36.8 C 81 16 116/74 100 05/03/19 03:59 36.6 C 80 18 113/71 99
--- NOTE | 2019-05-03 14:51 | Discharge Summary ---
Date of Service May 03, 2019 Admission HPI Per Admitting Provider 53 y/o M with PMH ulcerative colitis s/p total proctocolectomy with creation of ileoanal pouch, recurrent DVT on Xarelto presented to ER with c/o abnormal labs. Was called and told to present to ER secondary to anemia on recent labs. Patient with history of ulcerative colitis and reports has had intermittent bright red bleeding with bowel movements and intermittent melena for years. States usually has bleeding approximately every 3 days. He denies any increased bleeding or increased melena recently. Reports chronic watery stools multiple times throughout the day and denies any increased. Denies any abdominal pain. Patient reports for several months he has been having exertional shortness of breath, dizziness and lightheadedness with exertion. Denies syncope. Patient reports couple days ago noticed increased right lower leg edema. Has been resting and elevating legs and reports decreased edema since. Denies any associated leg redness, leg pain. He reports he has been taking his Xarelto daily however did not have dose yet this morning. Reports approximately 10 pound weight loss over the past couple months. Denies night sweats. Denies fever/chills, diaphoresis, N/V, ARANDA, vision changes, neck pain, CP, orthopnea, palpitations, cough, sore throat, choking, otalgia, rhinorrhea, abdominal pain, paresthesias, weakness, extremity weakness, rashes, urinary symptoms. Denies NSAID use. Patient follows with Dr. Stanley. Colonoscopy 04/2018: With noted patent ileal pouch-anal anastomosis, intact staple line, examined portion of ileum was normal. Outpatient records reviewed showing hemoglobin of 13 in 08/2018, hemoglobin os 7.2 in 02/2019, hemoglobin 6.8 on 05/01/2019. Admission Exam Per Admitting Provider General: no acute distress, WDWN Head: normocephalic, atraumatic Eyes: PERRL, EOM's intact, pale conjunctiva non-injected, anicteric ENT: normal inspection external ears, nose, mucous membranes moist Neck: supple, trachea midline Lungs: clear, no respiratory distress, no wheezing/rhonchi/rales CV: RRR, no murmur, Right leg with mild non-pitting edema, left leg with no pretibial edema Abd: normal BS, soft, non-tender Ext: no cyanosis, no calf tenderness; ROM intact, distal pulses intact Neuro: A&O x 3, no focal deficits noted, normal affect Skin: warm, dry, pale Principal Diagnosis Symptomatic anemia Iron deficiency anemia Chronic GI bleed Discharge Exam General: Well nourished, well hydrated , average body habitus, no acute distress and not ill appearing Eyes: PERRL, mild pallor, anicteric sclerae, EOM intact bilaterally ENMT: External ear and nose normal, oropharynx normal Neck: Normal visual inspection, no tracheal deviation, no swelling noted Respiratory: Normal respiratory effort, no respiratory distress, lungs clear to auscultation, no crackles and no wheezes Cardiovascular: Pulse is RRR. Heart Sounds: normal S1 and normal S2; no murmurs. Vessels: normal peripheral pulses Gastrointestinal (Abdomen): Abdomen is not distended, soft, non-tender to palpation, no guarding, no palpable hepatosplenomegaly, normal bowel sounds Musculoskeletal: No cyanosis or clubbing, +trace right leg edema Neurologic: Alert and oriented x 3, No focal weakness, sensation grossly intact Discharge Data Allergies Allergy/AdvReac Type Severity Reaction Status Date / Time No Known Allergies Allergy Unverified 09/18/17 07:54 Consultations 05/02/19 11:37 ED Decision to Admit Stat 05/02/19 15:28 Consult Gastroenterology Routine Ordered Studies 05/02/19 13:36 US venous doppler LE RT Urgent - Chronic DVT within the right popliteal vein, significantly improved compared to prior August 2017 study. No acute right lower extremity DVT identified Hemoglobin on admission - 6.9 Hemoglobin on discharge - 8.4 Ferritin - 6.8 MCV on admission - 67 Iron - 15 TIBC -[id number] Hospital Course (1) Symptomatic anemia: Due to chronic GI blood loss Patient reports he has been having intermittent bleed for years even before he started Xarelto for the DVTs. Not having any obvious GI bleed at the time of presentation. Hemoccult negative Microcytic hypochromic anemia from chronic blood loss. Iron studies show severe iron deficiency Got 2 PRBC and iv iron in the hospital Seen by [employer]. Will need to follow up with his practice office associate Dr. Turpin. Will need an outpatient scope Discharged on ferrous sulphate and folic acid Will need regular CBC check to assess blood levels especially if he continues to have GI bleed. (2) GI bleeding: As above (3) Recurrent deep vein thrombosis (DVT) of right lower extremity: History RLE DVT in 08/2017 and 07/2018 and On Xarelto since Followed with hematology -Dr Grier who had recommended 1 year treatment with Xarelto and follow up after 1 year of treatment to consider if further anticoagulant needed Doppler showed chronic Right LE DVT, improved from before Per patient, he has been having intermittent GI bleed since after surgeries. Discussed the risk and benefit of the anticoagulation. Also his ulcerative colitis is also a risk for VTE. He understands and will resume xarelto for his DVT. I discussed with him that he will need regular monitoring of his Hb when discharged. (4) Ulcerative colitis: s/p total proctocolectomy with creation of ileoanal pouch He is on Humira (receives every 2 weeks, last dose 04/26/19) Will follow up with his [employer] for continued management on discharge Total Time Total Time Spent Total Time Spent (In Minutes): 25 minutes Total Time Includes: Examination of the Patient, Discharge Planning, Medication Reconciliation and Communication With Other Providers Discharge Plan Discharge Items Patient Disposition: Home - Self-Care Reason For Visit: GI BLEED Discharge Diagnosis: Symptomatic anemia Iron deficiency anemia GI bleed Condition on Discharge: Good Activity: Resume your previous activity Non-emergency contact: Primary Care Provider and [employer] Call non-emergency contact if: you have any medication questions and your symptoms worsen Follow-up/Referrals: Eddie Turpin [Physician] - Rosie Muhammad, [Primary Care Provider] - Diet: Regular Addtl Attending Provider Instructions: Mr Ferro. You came to the hospital due to low blood levels. You reported intermittent bloody bowel movement for years. You also reported shortness of breath with exertion, dizziness and increased right leg swelling recently. Evaluation showed your blood level was low and iron levels were low too (Iron deficiency anemia due to the blood loss). You received 2 units of blood and injection iron. Your symptoms resolved. For the right leg swelling, we did a doppler ultrasound of your leg which showed the old blood clot you had without any new clot. While in the hospital, your Xarelto was suspended. Your bowel movement while you were in the hospital were normal. You were also seen by the [employer]. Iron pills and folic acid pills were added to your regular medications. Please resume your xarelto as we discussed. Please follow up with your [employer] for scope outpatient. Also follow up with your Primary Doctor. You will need regular checks of your blood levels. It was a pleasure taking care of you. Pending Studies at Discharge: No Stand-Alone Forms: My [facility] [address] Medications and DC Order Prescriptions: New ferrous fumarate 325 mg (106 mg iron) tablet 325 mg PO BID Qty: 60 RF: 0 folic acid 1 mg tablet 1 mg PO DAILY Qty: 30 RF: 0 Continued Humira Pen 40 mg/0.8 mL Pen Injector Kit 40 mg subcut UD RF: 0 Xarelto 20 mg tablet 20 mg PO QAM RF: 0 Discharge Orders: Discharge Order (Routine); Ordered 05/03/19 Ordered By: Kavita Perry Admission Data Admit Date/Time: 05/02/19 13:02 Attending Provider: Kavita Perry I. Admit Provider: Kavita Perry I. Primary Care Provider: Rosie Muhammad Other Providers: Ming Renner Valentine I. Other Interventions: Discharge Summary Assessment (RN) Last Done: 05/03/19 13:54 DC Date/Time DO NOT enter until pt leaves facility: 05/03/19 14:50
== END 2019-05-03 14:50 | disposition home or self-care (01) | DRG 386 ==
LOC: ED 09:16 → 2N 13:02